=== PATIENT | female | born 1985 | race Caucasian/White ===

== ENCOUNTER → 2024-02-26 | Outpatient (CLI) | payer OTHER, SELFPAY ==
--- NOTE | 2024-02-26 09:14 | US_ITS ---
STUDY: ULTRASOUND BREAST - BILATERAL REASON FOR EXAM: Female, 38 years old. Palpable mass left axilla TECHNIQUE: Axial and longitudinal images of the BILATERAL breast were performed with a high resolution ultrasound transducer. # OF IMAGES: 51 COMPARISON: Diagnostic mammogram earlier today FINDINGS: BILATERAL Breast: Right breast: Heterogeneous background echotexture. At 1:00, 12 cm from the nipple, ultrasound confirms a 10 mm irregular parallel microlobulated hypoechoic mass with no posterior features not consistent with a simple cyst and therefore ultrasound-guided vacuum-assisted core biopsy is recommended. Left breast: Heterogeneous background echotexture. Multiple longitudinal and transverse ultrasound images of the axillary tail of the left breast in the left axilla demonstrate no multiple normal lymph nodes measuring 0.5 x 1.4 cm, 1.2 x 2.8 cm, 0.8 x 2.2 cm which demonstrate normal morphology with normal fatty isa.: US/Breast Limited Unilateral IMPRESSION: 1. Ultrasound confirms a 10 mm microlobulated hypoechoic mass in the right breast and ultrasound-guided vacuum-assisted core biopsy is recommended. 2. Ultrasound confirms multiple normal lymph nodes in the left axilla. ASSESSMENT CATEGORY: BIRADS Category 4: Suspicious. Biopsy Should Be Considered. A letter regarding these results will be sent to the patient by the facility within 30 days. Electronically Signed: Krishna Domínguez MD at 11:43 EDT ,
--- NOTE | 2024-02-26 09:14 | BI_ITS ---
MAMMOGRAPHY - BILATERAL DIAGNOSTIC REASON FOR EXAM: Female, 38 years old. MASS PERTINENT HISTORY: Non-contributory. TECHNIQUE: Digital examination. Mediolateral oblique (MLO) and craniocaudad (CC) views of both breasts were obtained. CAD: CAD was performed on this study. COMPARISON: None. FINDINGS: Breast Composition: The breasts are heterogeneously dense, which may obscure small masses. 1 cm oval obscured equal density mass in the upper inner quadrant of the right breast at posterior depth and ultrasound is recommended for further evaluation. No dominant mass in the left breast. Some normal-sized lymph nodes are seen in the left axilla. Ultrasound of the palpable abnormality in the left axilla would be useful. No suspicious calcifications. No other significant abnormalities are identified. BI/DIAG MAMM W/CAD, BILAT IMPRESSION: Further ultrasonographic evaluation recommended, as described above. ASSESSMENT CATEGORY: BIRADS Category 0: Incomplete. Need additional imaging evaluation. A letter regarding these results will be sent to the patient by the facility within 30 days. FOLLOW UP RECOMMENDATION: Ultrasound Recommended. (I) Approximately 10% of breast cancers are not detected by mammography. A normal mammogram should not delay biopsy of a clinically suspicious abnormality. Electronically Signed: Krishna Domínguez MD at 10:16 EDT ,
== END | disposition home or self-care (01) ==
PROVIDERS: PCP Nurse Practitioner Family; Referring Provider Nurse Practitioner Family; Visit Provider Nurse Practitioner Family
DX: N63.31 Unspecified lump in axillary tail of the right breast (principal); N63.32 Unspecified lump in axillary tail of the left breast
CPT/HCPCS: 76642; 77062; 77066; G0279